=== PATIENT | female | born 1995 | race Caucasian/White ===

== ENCOUNTER 2018-02-24 11:17 | Emergency (ER) | payer BC ==
[2018-02-24] MEDS ORDERED: Ondansetron ODT 4 MG TAB ONE (11:43)
[2018-02-24 12:02] LABS: #Eosinphils 0.2 thou/uL (0.0-0.7); #Lymphocytes 2.3 thou/uL (1.20-3.40); #Monocytes 0.7 thou/uL (0.11-0.59); #Neutrophils 3.1 thou/uL (1.40-6.50); %Basophils 0.1 % (0.0-1.0); %Eosinophils 3.1 % (0.0-10.0); %Lymphocytes 36.5 % (21.0-51.0); %Monocytes 11.3 % (0.0-10.0); %Neutrophils 48.9 % (42.0-75.0); Hemoglobin 14.2 g/dL (12.0-16.0); Mean Corpuscular Hemoglobin 30.3 pg (27.0-31.0); Mean Corpuscular Volume 88.9 fl (81.0-99.0); Platelet Count 213 thou/uL (130-400); RBC Distribution Width 12.2 % (11.5-14.5); Red Blood Cell (RBC) Count 4.68 mill/uL (4.20-5.40); White Blood Cell (WBC) Count 6.2 thou/uL (4.8-10.8)
[2018-02-24 12:14] LABS: ALT (SGPT) 13 U/L (8-55); AST (SGOT) 16 U/L (5-34); Albumin 4.3 g/dL (3.5-5.0); Alkaline Phosphatase 61 U/L (40-150); Anion Gap 9 mmol/L (10-20); BUN (Urea Nitrogen) 11 mg/dL (7.0-18.7); Bilirubin, Total 0.7 mg/dL (0.2-1.2); Calc. Creatinine Clearance 0 mL/min (70-130); Calcium 9.5 mg/dL (7.8-10.44); Carbon Dioxide 23 mmol/L (22-29); Chloride 109 mmol/L (98-107); Estimated GFR-MDRD Greater than 90; Globulin 3.3 g/dL (2.4-3.5); Glucose 90 mg/dL (70-105); Potassium 4.1 mmol/L (3.5-5.1); Protein, Total 7.6 g/dL (6.0-8.3); Sodium 137 mmol/L (136-145)
[2018-02-24 12:24] LABS: BHCG - Serum Negative (NEGATIVE); Pregs Control Background? CLEAR/WHITE (CLR/WHITE); Pregs Control Bar Appear? YES (CONTROL BAR)
== END 2018-02-24 12:42 | disposition home or self-care (01) ==
LOC: ERS 11:17
DX: A08.4 Viral intestinal infection, unspecified (principal); F90.9 Attention-deficit hyperactivity disorder, unspecified type; F43.10 Post-traumatic stress disorder, unspecified; F31.9 Bipolar disorder, unspecified; F17.210 Nicotine dependence, cigarettes, uncomplicated
CPT/HCPCS: 80053; 84703; 85025; 96360; Q0162

== ENCOUNTER 2018-07-21 09:33 | Emergency (ER) | payer BC, SELFPAY ==
[2018-07-21] MEDS ORDERED: Famotidine 20 MG TAB ONE (10:28)
[2018-07-21] MEDS ORDERED: predniSONE 20 MG TAB ONE (10:28)
[2018-07-21] MEDS ORDERED: diphenhydrAMINE 25 MG CAP ONE (10:28)
== END 2018-07-21 11:05 | disposition home or self-care (01) ==
LOC: ERS 09:33
DX: L50.0 Allergic urticaria (principal); F90.9 Attention-deficit hyperactivity disorder, unspecified type; F43.10 Post-traumatic stress disorder, unspecified; F41.9 Anxiety disorder, unspecified; F31.9 Bipolar disorder, unspecified; F17.210 Nicotine dependence, cigarettes, uncomplicated
CPT/HCPCS: 99282; J7506

== ENCOUNTER 2019-03-31 16:24 | Emergency (ER) | payer SELFPAY ==
[2019-03-31] MEDS ORDERED: HYDROcodone/Acetaminophen 5/325 mg Tablet ONE (17:02)
--- NOTE | 2019-03-31 17:19 | RAD ---
RIGHT ELBOW FOUR VIEWS: 03/31/19 HISTORY: Right elbow pain. FINDINGS/IMPRESSION: No evidence for acute fracture or dislocation. The lateral view is slightly oblique. No overt joint e ffusion demonstrated. If the patient has persistent or worsening pain, follow-up examination in 1-2 weeks recommended. POS: [facility]
--- NOTE | 2019-03-31 17:48 | RAD ---
RIGHT FOREARM TWO VIEWS: 03/31/19 HISTORY: Forearm and elbow pain status post fall. There are no signs of fracture or dislocation. IMPRESSION: Negative right forearm. POS: OFF
== END 2019-03-31 18:00 | disposition home or self-care (01) ==
LOC: ERS 16:24
DX: M25.521 Pain in right elbow (principal); F31.9 Bipolar disorder, unspecified; F41.9 Anxiety disorder, unspecified; F90.9 Attention-deficit hyperactivity disorder, unspecified type; F43.11 Post-traumatic stress disorder, acute; F17.210 Nicotine dependence, cigarettes, uncomplicated; W19.XXXA Unspecified fall, initial encounter

== ENCOUNTER 2020-02-17 09:26 | Emergency (ER) | payer BC, SELFPAY ==
[2020-02-17] MEDS ORDERED: Ketorolac Tromethamine 30 MG/ML VIAL ONE (10:26)
[2020-02-17 10:32] LABS: BHCG - Serum Negative (NEGATIVE); Pregs Control Background? CLEAR/WHITE (CLR/WHITE); Pregs Control Bar Appear? YES (CONTROL BAR)
[2020-02-17 10:35] LABS: #Eosinphils 0.1 thou/uL (0.0-0.7); #Lymphocytes 2.7 thou/uL (1.20-3.40); #Monocytes 0.5 thou/uL (0.11-0.59); #Neutrophils 4.1 thou/uL (1.40-6.50); %Basophils 0.3 % (0.0-1.0); %Eosinophils 1.7 % (0.0-10.0); %Lymphocytes 36.8 % (21.0-51.0); %Monocytes 6.1 % (0.0-10.0); %Neutrophils 55.2 % (42.0-75.0); Hemoglobin 15.1 g/dL (12.0-16.0); Mean Corpuscular HGB CONC 34.4 g/dL (32.0-36.0); Mean Corpuscular Hemoglobin 31.4 pg (27.0-31.0); Mean Corpuscular Volume 91.1 fL (78.0-98.0); Mean Platelet Volume 7.4 fL (7.4-10.4); Platelet Count 252 thou/uL (130-400); Red Blood Cell (RBC) Count 4.81 mill/uL (4.20-5.40); White Blood Cell (WBC) Count 7.4 thou/uL (4.8-10.8)
--- NOTE | 2020-02-17 11:04 | CT ---
CT Stone Protocol 02/17/2020 9:54 AM HISTORY: Right flank pain. COMPARISON: 06/16/2011 Technique: Multiple contiguous axial CT images are obtained through the abdomen and pelvis without IV contrast. Coronal reformats are provided. FINDINGS: This examination is limited for the evaluation of solid organs and vascular structures due to the lac k of intravenous contrast. Lower Chest: Lung bases are clear. Abdomen: Liver: Grossly normal non-enhanced CT appearance. Gallbladder: Within normal limits for CT imaging. Pancreas: Grossly normal nonenhanced CT appearance. Spleen: Grossly normal nonenhanced CT appearance. Adrenals: Grossly normal nonenhanced CT appearance. Kidneys: No renal calculi are visualized, and there is no evidence of hydronephrosis. Ureters: No ureteral calculus is seen.. Pelvis: Urinary bladder: within normal limits. Reproductive Organs: Previously noted T-shaped intrauterine contraceptive device is no longer visuali zed. Lymph Nodes: No enlarged lymph nodes. Bowel: Normal caliber. Appendix: The appendix is normal in caliber. Peritoneum: No free fluid, free air, or fluid collection. Retroperitoneum: within normal limits. Vessels: Abdominal aorta is normal in caliber. Abdominal Wall: within normal limits. Bones: within normal limits. IMPRESSION: 1. No renal or ureteral calculi are seen bilaterally.
[2020-02-17 11:38] LABS: Albumin 4.6 g/dL (3.5-5.0)
[2020-02-17 11:39] LABS: Chloride 109 mmol/L (98-107); Sodium 140 mmol/L (136-145)
[2020-02-17 11:40] LABS: Calcium 9.4 mg/dL (7.8-10.44)
[2020-02-17 11:41] LABS: Globulin 2.9 g/dL (2.4-3.5); Glucose 96 mg/dL (70-105); Protein, Total 7.5 g/dL (6.0-8.3)
[2020-02-17 11:42] LABS: Anion Gap 13 mmol/L (10-20); Bilirubin, Total 0.9 mg/dL (0.2-1.2); Carbon Dioxide 22 mmol/L (22-29)
[2020-02-17 11:43] LABS: Alkaline Phosphatase 58 U/L (40-110)
[2020-02-17 11:44] LABS: Calc. Creatinine Clearance 0 mL/min (70-130); Estimated GFR-MDRD 88
[2020-02-17 11:45] LABS: BUN (Urea Nitrogen) 11 mg/dL (7.0-18.7)
[2020-02-17 11:46] LABS: ALT (SGPT) 11 U/L (8-55); AST (SGOT) 13 U/L (5-34)
[2020-02-17 12:15] LABS: Bilirubin Negative (Negative); Blood, Urine Negative (Negative); Glucose, Urine (Dipstick) Negative (Negative); Leukocyte Negative (Negative); Nitrite Negative (Negative); Protein, Urine (Dipstick) Negative (Neg-Trace); Urobilinogen 0.2 mg/dL (Less than 2)
[2020-02-17 12:19] LABS: Clarity Clear (Clear)
== END 2020-02-17 12:48 | disposition home or self-care (01) ==
LOC: ERS 09:26
DX: R10.9 Unspecified abdominal pain (principal); F31.9 Bipolar disorder, unspecified; F90.9 Attention-deficit hyperactivity disorder, unspecified type; F43.10 Post-traumatic stress disorder, unspecified; F41.9 Anxiety disorder, unspecified; F17.210 Nicotine dependence, cigarettes, uncomplicated
CPT/HCPCS: 36415; 74176; 80053; 81003; 84703; 85025; 96361; 96374; J1885

== ENCOUNTER 2021-08-01 08:25 | Emergency (ER) | payer OTHER, SELFPAY ==
[2021-08-01] MEDS ORDERED: Acetaminophen 500 MG TAB ONE ×2 (09:19→09:27)
[2021-08-01] MEDS ORDERED: Ketorolac Tromethamine 30 MG/ML VIAL ONE (10:06)
== END 2021-08-01 10:40 | disposition home or self-care (01) ==
LOC: ERS 08:25
DX: M71.22 Synovial cyst of popliteal space [Baker], left knee (principal); M25.561 Pain in right knee; Z87.891 Personal history of nicotine dependence; V89.2XXA Person injured in unspecified motor-vehicle accident, traffic, initial encounter
CPT/HCPCS: 96372; J1885

== ENCOUNTER 2022-04-24 13:12 | Emergency (ER) | payer SELFPAY | END 2022-04-24 14:13 | disposition home or self-care (01) | LOC: ERS 13:12 | DX: U07.1 COVID-19 (principal); Z87.891 Personal history of nicotine dependence | CPT/HCPCS: 99283 ==

== ENCOUNTER 2022-09-03 20:57 | Emergency (ER) | payer SELFPAY ==
[2022-09-03] MEDS ORDERED: Acetaminophen 500 MG TAB ONE (22:05)
[2022-09-03] MEDS ORDERED: Ketorolac Tromethamine 30 MG/ML VIAL ONE (22:05)
[2022-09-03 23:25] LABS: SARS-CoV-2 NAA Rapid Test Not Detected (NotDetected)
[2022-09-03] MEDS ORDERED: Benzonatate 100 MG CAP ONE (23:54)
== END 2022-09-03 23:59 | disposition home or self-care (01) ==
LOC: ERS 20:57
DX: J10.1 Influenza due to other identified influenza virus with other respiratory manifestations (principal); Z20.822 Contact with and (suspected) exposure to COVID-19; Z87.891 Personal history of nicotine dependence
CPT/HCPCS: 71045; 96361; 96374; J1885

== ENCOUNTER 2023-09-08 07:21 | Emergency (ER) | payer BC, SELFPAY ==
[2023-09-08] MEDS ORDERED: Acetaminophen 500 MG TAB ONE (07:57)
[2023-09-08] MEDS ORDERED: Ibuprofen 200 MG TAB ONE (07:57)
[2023-09-08] MEDS ORDERED: Albuterol 200 PUFF (6.7GM INHALER) ONE (07:58)
[2023-09-08 08:53] LABS: SARS-CoV-2 NAA Rapid Test DETECTED (NotDetected)
[2023-09-08] MEDS ORDERED: Ondansetron ODT 4 MG TAB ONE (09:53)
== END 2023-09-08 10:04 | disposition home or self-care (01) ==
LOC: ERS 07:21
DX: U07.1 COVID-19 (principal); J12.82 Pneumonia due to coronavirus disease 2019; Z20.822 Contact with and (suspected) exposure to COVID-19; Z87.891 Personal history of nicotine dependence
CPT/HCPCS: 71045; 87804; Q0162; U0002

== ENCOUNTER 2023-09-27 10:43 | Emergency (ER) | payer BC ==
[2023-09-27] MEDS ORDERED: Ketorolac Tromethamine 30 MG/ML VIAL ONE (11:20)
[2023-09-27] MEDS ORDERED: HYDROcodone/Acetaminophen 10/325 mg Tablet ONE (11:21)
== END 2023-09-27 11:55 | disposition home or self-care (01) ==
LOC: ERS 10:43
DX: S29.9XXA Unspecified injury of thorax, initial encounter (principal); Z87.891 Personal history of nicotine dependence; X50.0XXA Overexertion from strenuous movement or load, initial encounter
CPT/HCPCS: 71045; 96372; J1885

== ENCOUNTER 2025-08-01 06:56 | Emergency (ER) | payer SELFPAY ==
[2025-08-01] MEDS ORDERED: Fluconazole 100 MG TAB ONE (07:35)
== END 2025-08-01 07:45 | disposition home or self-care (01) ==
LOC: ERS 06:56
DX: B35.9 Dermatophytosis, unspecified (principal); Z87.891 Personal history of nicotine dependence
CPT/HCPCS: 99283